=== PATIENT | male | born 1975 | race African-American/Black ===

== ENCOUNTER 2016-09-14 09:08 | Emergency (ER) | payer OTHER ==
[~2016-09-14] VITALS: Ht 182.9 cm; Wt 106.8 kg
[~2016-09-14 09:08] MED LIST: ANUCORT-HC25 MG PR; CEFTRIAXONE2 G1 IV; COLACE100 MG PO; NYQUIL D COLD295 ML PO; OMEPRAZOLE40 M1 PO; PERCOCET 5/31 TABLET PO; TRAMADOL HCL50 MG PO; TYLENOL REGULA325 MG PO; ZANTAC150 MG PO
[2016-09-14 09:37] LABS: HEMATOCRIT 40.4 % (38.0-50.0); MCH 26.9 PG (29.0-34.0); MCHC 33.7 G/DL (30.0-36.0); PLATELET COUNT 219 K/uL (156-360); RBC DIS.WIDTH-CV 14.7 % (11.8-14.6); RBC DIS.WIDTH-SD 41.9 % (39-53); RED BLOOD COUNT 5.05 M/uL (4.00-5.50); WHITE BLOOD COUNT 6.9 K/uL (4.1-10.2)
[2016-09-14 09:47] LABS: CHLORIDE 107 mEq/L (99-109); POTASSIUM 4.4 mEq/L (3.7-5.4); SODIUM 138 mEq/L (136-147)
[2016-09-14 09:49] LABS: GLUCOSE 105 mg/dL (70-99)
[2016-09-14 09:50] LABS: ANION GAP 7 MEQ/L (2-14)
[2016-09-14 09:52] LABS: GFR ESTIMATE (CALCULATED) > 59 mL/min/
[2016-09-14 09:53] LABS: UREA NITROGEN (BUN) 22 mg/dL (9-23)
[2016-09-14 13:13] LABS: TROP-I INTERPRETATION NEGATIVE; TROPONIN-I < 0.01 ng/mL (0.0-0.30)
[2016-09-14] MEDS ORDERED: MECLIZINE HCL25 MG PO (13:55)
[2016-09-14] MEDS ORDERED: FLEXERIL10 MG PO (13:55)
[2016-09-14] MEDS ORDERED: ZOFRAN ODT4 MG PO (13:55)
[2016-09-14 14:01] VITALS: BP 115/85
== END 2016-09-14 14:06 | disposition home or self-care (01) ==
LOC: EME 09:08
DX: F07.81 Postconcussional syndrome (principal); S43.401A Unspecified sprain of right shoulder joint, initial encounter; S00.83XA Contusion of other part of head, initial encounter; V49.88XA Car occupant (driver) (passenger) injured in other specified transport accidents, initial encounter; F17.200 Nicotine dependence, unspecified, uncomplicated
CPT/HCPCS: 70450; 71020; 73030; 80048; 84484; 85027; 93005; 99281; 99284; J1885

== ENCOUNTER 2017-03-06 17:37 | Emergency (ER) | payer OTHER ==
[~2017-03-06] VITALS: Ht 182.9 cm; Wt 117.3 kg
[~2017-03-06 17:37] MED LIST changes: +FLEXERIL10 MG PO; +MECLIZINE HCL25 MG PO; +ZOFRAN ODT4 MG PO
[2017-03-06 20:32] LABS: HEMATOCRIT 43.6 % (38.0-50.0); MCHC 32.6 G/DL (30.0-36.0); MCV 82.9 FL (86-99); MEAN PLAT.VOLUME 10.7 uM^3 (9.0-12.4); PLATELET COUNT 158 K/uL (156-360); RBC DIS.WIDTH-CV 14.3 % (11.8-14.6); RBC DIS.WIDTH-SD 42.9 % (39-53); RED BLOOD COUNT 5.26 M/uL (4.00-5.50)
[2017-03-06 20:41] LABS: CHLORIDE 107 mEq/L (99-109); SODIUM 140 mEq/L (136-147)
[2017-03-06 20:43] LABS: GLUCOSE 92 mg/dL (70-99)
[2017-03-06 20:44] LABS: ANION GAP 8 MEQ/L (2-14)
[2017-03-06 20:47] LABS: GFR ESTIMATE (CALCULATED) > 59 mL/min/
[2017-03-06 20:49] LABS: D-DIMER ELISA 0.23 mg/L FEU (< 0.57); PROTHROMBIN TIME 9.9 (9.2-11.2)
[2017-03-06 21:02] LABS: UREA NITROGEN (BUN) 19 mg/dL (9-23)
[2017-03-06] MEDS ORDERED: TESSALON PERLE100 MG PO (21:10)
[2017-03-06] MEDS ORDERED: AFRIN,GENASAL D15 ML BOTH NARES (21:10)
[2017-03-06] MEDS ORDERED: NAPROSYN500 MG PO (21:10)
[2017-03-06 21:39] VITALS: BP 133/88
== END 2017-03-06 21:41 | disposition home or self-care (01) ==
LOC: EME 17:37
PROVIDERS: Physician Assistant
DX: J06.9 Acute upper respiratory infection, unspecified (principal); B34.9 Viral infection, unspecified; R09.89 Other specified symptoms and signs involving the circulatory and respiratory systems
CPT/HCPCS: 71020; 80048; 85027; 85379; 85610; 85730; 99281; 99283